=== PATIENT | male | born 1945 | race Caucasian/White ===

== ENCOUNTER 2018-06-06 15:39 | Emergency (ER) | payer MEDICARE, BC ==
[2018-06-06 16:09] VITALS: BP 166/90
[2018-06-06] MEDS ORDERED: Lidocaine 1%* 5 ML VIAL INJ ONE (17:12)
[2018-06-06] MEDS ORDERED: Tetan/Diph/Pertus SYR(Tdap)* 0.5 ML SYR(BOOSTRIX) use SYR IM ONE (17:12)
--- NOTE | 2018-06-06 17:16 | UC ---
Laceration HPI - HPI Summary HPI Summary: WAS USING [employer] TO TIE DOWN SOLAR PANELS WHICH HE WAS MOVING WHEN A CORD SLIPPED OFF AND STRUCK HIM IN THE RIGHT EYEBROW. HE SUSTAINED A LACERATION. NO LOC. NO DIZZINESS OR VISUAL DISTURBANCES. NO NAUSEA OR HEADACHE. NOT UP-TO -DATE TETANUS. 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 - Laceration Location: Face Mechanism Of Injury: Blunt Trauma Onset/Duration: Sudden Onset, Lasting Hours, Still Present Severity: Mild Pain Intensity: 0 Pain Scale Used: 0-10 Numeric Aggravating Factors: Nothing - Allergies/Home Medications Allergies/Adverse Reactions: Allergies Allergy/AdvReac Type Severity Reaction Status Date / Time No Known Allergies Allergy Verified 06/06/18 16:09 Home Medications: Home Medications Atorvastatin* [Lipitor 20 MG*] 20 mg PO DAILY 06/06/18 [History Confirmed ] Levothyroxine TAB* [Synthroid 125 MCG TAB*] 125 mcg PO DAILY 06/06/18 [History Confirmed 06/06/18] PMH/Surg Hx/FS Hx/Imm Hx Endocrine History: Hypothyroidism, Dyslipidemia - Surgical History Surgical History: Yes Surgery Procedure, Year, and Place: laminectomy - Family History Known Family History: Positive: Non-Contributory - Social History Alcohol Use: Daily Substance Use Type: None Smoking Status (MU): Former Smoker Review of Systems All Other Systems Reviewed And Are Negative: Yes Constitutional: Positive: Negative Skin: Positive: Other - LACERATION RIGHT EYEBROW Respiratory: Positive: Negative Cardiovascular: Positive: Negative Gastrointestinal: Positive: Negative Neurological: Positive: Negative Physical Exam Triage Information Reviewed: Yes Appearance: Well-Appearing, No Pain Distress Vital Signs: Initial Vital Signs Temp 98.2 F 06/06/18 16:04 Pulse 71 06/06/18 16:04 Resp 20 06/06/18 16:04 BP 166/90 06/06/18 16:04 Pulse Ox 99 06/06/18 16:04 Vital Signs Reviewed: Yes Eyes: Positive: Conjunctiva Clear, Other: - PERRL, EOMI ENT: Positive: Hearing grossly normal Neck: Positive: Supple Respiratory: Positive: No respiratory distress, No accessory muscle use Cardiovascular: Positive: Pulses Normal Abdomen Description: Positive: Soft Musculoskeletal: Positive: No Edema Neurological: Positive: Alert Psychological: Positive: Age Appropriate Behavior Skin: Positive: Other - 1.5CM LINEAR LACERATION RIGHT EYEBROW Laceration Repair - Laceration Repair 1 Description: Linear Laceration Size After Repair: Length (cm) - 1.5CM, Width (mm) - 0MM, Depth (mm) - 4MM Modified For Repair: No Type Injection: Local Anesthesia Used: 1.0% Lido Irrigation With Pressure Irrigation Device: Yes Closure Material: Sutures - 4 SIMPLE INTERRUPTED Closure Method: Single Layer Suture Of: Skin Suture Type: Prolene - 5-0 Laceration Course/Dx - Diagnosis Provider Diagnosis: Laceration of right eyebrow, Need for Tdap vaccination Discharge - Sign-Out/Discharge Documenting (check all that apply): Patient Departure All imaging exams completed and their final reports reviewed: No Studies - Discharge Plan Condition: Stable Disposition: HOME Patient Education Materials: Facial Laceration (ED) Referrals: Chana Das MD [Primary Care Provider] - If Needed Additional Instructions: KEEP DRESSINGS IN PLACE AND DRY FOR THE FIRST 24 HRS. THEN YOU MAY REMOVE THE DRESSING AND GENTLY CLEANSE WITH SOAP AND WATER. PAT DRY AND RE-BANDAGE. APPLY THIN LAYER ANTIBIOTIC OINTMENT UNDER BANDAGE FOR FIRST 3-4 DAYS ONLY. CHANGE BANDAGE DAILY AND NEEDED IF IT BECOMES SOILED OR WET. SEEK FOLLOW-UP IF YOU DEVELOP SPREADING REDNESS OF THE SKIN, PURULENT DRAINAGE, FEVER, INCREASED PAIN OR ANY OTHER CONCERNING SYMPTOMS. RETURN TO HAVE YOUR FOUR SUTURES REMOVED IN 10 DAYS TETANUS IMMUNIZATION GIVEN (TDAP): You have been given an immunization against tetanus. Please record this in your records. In general, a booster is needed only once every 10 years. The tetanus shot protects against tetanus or "lockjaw," which is a complication of certain wound infections (the tetanus shot cannot protect against the actual infection). The immunization site may become warm and red due to local reaction. If this occurs, apply warm compresses and take aspirin or ibuprofen to reduce inflammation and discomfort. Return for evaluation if the reaction becomes severe. - Billing Disposition and Condition Condition: STABLE Disposition: Home
== END 2018-06-06 17:55 | disposition home or self-care (01) ==
LOC: UCEAST 15:39
DX: S01.111A Laceration without foreign body of right eyelid and periocular area, initial encounter (principal); E03.9 Hypothyroidism, unspecified; Z23 Encounter for immunization; Z87.891 Personal history of nicotine dependence; Z79.899 Other long term (current) drug therapy; W20.8XXA Other cause of strike by thrown, projected or falling object, initial encounter; Y92.9 Unspecified place or not applicable
CPT/HCPCS: 12011; 90715; 99201; G0463

== ENCOUNTER 2018-06-16 13:46 | Emergency (ER) | payer MEDICARE, BC ==
[2018-06-16 14:43] VITALS: BP 151/78
--- NOTE | 2018-06-16 15:14 | UC ---
HPI Wound/Suture Re-check - HPI Summary HPI Summary: 73 y/o male presents to the urgent care requesting suture removal on his Rt eye brow. Sutures were placed here at the clinic 10 days ago. Pt states wound healling well w/o any pain or drainage. Pt denies fever, SOB, SANDOVAL, chest pain, abdominal pain, N/V/d. - History Of Current Complaint Chief Complaint: UCLaceration Stated Complaint: REMOVAL OF STICHES Time Seen by Provider: 06/16/18 14:55 Hx Obtained From: Patient Onset/Duration: Sudden Onset, Lasting Days - 10 days, Resolved Pain Intensity: 0 Pain Scale Used: 0-10 Numeric Surgery Date: 06/06/18 - above the Rt eyebrow - Allergies/Home Medications Allergies/Adverse Reactions: Allergies Allergy/AdvReac Type Severity Reaction Status Date / Time No Known Allergies Allergy Verified 06/16/18 14:43 Home Medications: Home Medications Montelukast Sodium 20 mg PO DAILY 06/16/18 [History Confirmed 06/16/18] Naproxen Sodium [Aleve] 220 mg PO DAILY PRN 06/16/18 [History Confirmed 06/16/18 ] PMH/Surg Hx/FS Hx/Imm Hx Previously Healthy: Yes - Pt denies PMHX - Surgical History Surgical History: Yes Surgery Procedure, Year, and Place: laminectomy. knee surgery - Family History Known Family History: Positive: Non-Contributory - Social History Occupation: Employed Full-time Lives: With Family Alcohol Use: Daily Alcohol Amount: 2-3 drinks Substance Use Type: None Smoking Status (MU): Former Smoker Review of Systems All Other Systems Reviewed And Are Negative: Yes Constitutional: Positive: Negative Skin: Positive: Other - RT eye brow with sutures healing well w/ 4 sutures Eyes: Positive: Negative ENT: Positive: Negative Respiratory: Positive: Negative Cardiovascular: Positive: Negative Gastrointestinal: Positive: Negative Genitourinary: Positive: Negative Motor: Positive: Negative Neurovascular: Positive: Negative Musculoskeletal: Positive: Negative Neurological: Positive: Negative Psychological: Positive: Negative Is Patient Immunocompromised?: No Physical Exam Triage Information Reviewed: Yes Appearance: Well-Appearing, Well-Nourished - male Vital Signs: Initial Vital Signs Temp 98.6 F 06/16/18 14:40 Pulse 89 06/16/18 14:40 Resp 18 06/16/18 14:40 BP 151/78 06/16/18 14:40 Pulse Ox 97 06/16/18 14:40 Vital Signs Reviewed: Yes Eye Exam: Normal ENT Exam: Normal Dental Exam: Normal Neck exam: Normal Respiratory Exam: Normal Cardiovascular Exam: Normal Cardiovascular: Positive: RRR, Pulses Normal, Brisk Capillary Refill Abdominal Exam: Normal Bowel Sounds: Positive: Present Musculoskeletal Exam: Normal Neurological Exam: Normal Psychological Exam: Normal Skin: Positive: Other - Wound healing well with crusting and moderate granulation over, non tender to palpation, [address] over the RT eyebrow. no signs of infection Course/Dx - Course Course Of Treatment: 73 y/o male presents to the urgent care requesting suture removal on his Rt eye brow. Sutures were placed here at the clinic 10 days ago. Pt states wound healling well w/o any pain or drainage. Pt denies fever, SOB, SANDOVAL , chest pain, abdominal pain, N/V/d. Hx obtained. Wound healing well with crusting and moderate granulation over, non tender to palpation, [address] over the RT eyebrow. 4 sutures removed from w/o any difficulty. Pt tolerated well procedure. wound cleaned with sterile water and bacitracin applied over and cover with sterile gauze. Pt advised if redness, pain or fever develops to return to the urgent care or f/u with PCP for further treatment. Pt' s BP elevated today, advised to decrease salt in diet and monitor BP, and f/u with PCP. Pt understood and agreed with plan of care - Differential Dx - Laceration/Wound Differential Diagnoses: Abscess, Cellulitis, Healing Wound, Suture Removal - Diagnosis Provider Diagnosis: Visit for suture removal, Elevated BP without diagnosis of hypertension Discharge - Sign-Out/Discharge Documenting (check all that apply): Patient Departure - D/c home All imaging exams completed and their final reports reviewed: No Studies - Discharge Plan Condition: Stable Disposition: HOME Patient Education Materials: Wound Infection (ED) Referrals: Chana Das MD [Primary Care Provider] - Additional Instructions: 1-Please apply topical antibiotic over the wound. Keep wound clean and dry 2-Take Ibuprofen or Tylenol PO q6-8hrs prn for pain or swelling. 3- If you develop fever or redness around your wound please return to the Urgent care. 4 Your BP is elevated today. please decrease salt in your diet, monitor BP and if it continues to be elevated please f/u with your PCP for further management. - Billing Disposition and Condition Condition: STABLE Disposition: Home
== END 2018-06-16 15:15 | disposition home or self-care (01) ==
LOC: UCEAST 13:46
DX: S01.111D Laceration without foreign body of right eyelid and periocular area, subsequent encounter (principal); R03.0 Elevated blood-pressure reading, without diagnosis of hypertension; Z87.891 Personal history of nicotine dependence; X58.XXXD Exposure to other specified factors, subsequent encounter